=== PATIENT | female | born 1960 | race Caucasian/White ===

== ENCOUNTER 2017-05-27 19:30 | Emergency (ER) | payer SELFPAY ==
[2017-05-27 19:33] VITALS: BP 129/62; PULSE 86; RESP 16; TEMP 97.9; O2SAT 97
--- NOTE | 2017-05-27 19:57 | PD ---
HPI Chief Complaint: Flank/Kidney Pain Time Seen by Provider: 19:47 Travel History International Travel<30 days: No Contact w/Intl Traveler<30days: No Traveled to known affect area: No History of Present Illness HPI This is a 56-year-old female who presents to the emergency department with right sided flank pain that started at 4 AM this morning and has progressed throughout the day [id number], radiating down into her right lower abdomen. She has had some nausea but no vomiting. She denies any fevers or chills. She says this feels similar to when she's had kidney stones in the past. The last time she had a kidney stone it was small and didn't require any intervention. PFSH Past Medical History Kidney Stones: Yes Tetanus Vaccination: Unknown Influenza Vaccination: Yes ?: Not LMP: 04/23/17 : 0 Ovarian Cysts: Yes Past Surgical History Gynecologic Surgery: Yes (RIGHT BREAST "MARKER" PLACED) Social History Alcohol Use: Yes ("WEEKENDS") Tobacco Use: Yes (1/2 PACK PER WEEK) Substance Use: No Allergies-Medications (Allergen,Severity, Reaction): Coded Allergies: No Known Allergies (Unverified , 05/27/17) Reported Meds & Prescriptions Reported Meds & Active Scripts Active No Active Prescriptions or Reported Medications Review of Systems Except as stated in HPI: all other systems reviewed are Neg Physical Exam Narrative GENERAL:Well appearing, no acute distress SKIN: Focused skin assessment warm and dry. HEAD: Atraumatic. Normocephalic. EYES: Pupils equal and round. No injection or drainage. ENT: Moist mucous membranes NECK: Trachea midline. CARDIOVASCULAR: Regular rate and rhythm. No murmur appreciated. RESPIRATORY: Clear to auscultation. Breath sounds equal bilaterally. GASTROINTESTINAL: Abdomen soft, mildly tender to palpation in the right lower quadrant with no rebound or guarding. : Right CVA tenderness MUSCULOSKELETAL: No obvious deformities. NEUROLOGICAL: Awake and alert. No obvious cranial nerve deficits. Moving all extremities. PSYCHIATRIC: Appropriate mood and affect; insight and judgment normal. Data Data Last Documented VS Vital Signs Date Time Temp Pulse Resp B/P Pulse Ox O2 Delivery O2 Flow Rate FiO2 05/27/17 21:32 83 113/74 97 Room Air 05/27/17 19:33 97.9 16 Orders Complete Blood Count With Diff (05/27/17 19:54) Comprehensive Metabolic Panel (05/27/17 19:54) Urinalysis - C+S If Indicated (05/27/17 19:54) ^ Insert Iv (05/27/17 19:54) Sodium Chlor 0.9% 1000 Ml Inj (Ns 1000 M (05/27/17 20:00) Ketorolac Inj (Toradol Inj) (05/27/17 20:00) Ondansetron Inj (Zofran Inj) (05/27/17 20:00) Ed Poc Ultrasound (05/27/17 ) Morphine Inj (Morphine Inj) (05/27/17 21:00) Morphine Inj (Morphine Inj) (05/27/17 21:00) Ondansetron Inj (Zofran Inj) (05/27/17 21:15) Labs Laboratory Tests Test 05/27/17 05/27/17 19:55 20:00 White Blood Count 9.5 TH/MM3 Red Blood Count 4.51 MIL/MM3 Hemoglobin 14.2 GM/DL Hematocrit 41.6 % Mean Corpuscular Volume 92.2 FL Mean Corpuscular Hemoglobin 31.5 PG Mean Corpuscular Hemoglobin 34.2 % Concent Red Cell Distribution Width 11.9 % Platelet Count 208 TH/MM3 Mean Platelet Volume 9.3 FL Neutrophils (%) (Auto) 75.5 % Lymphocytes (%) (Auto) 13.6 % Monocytes (%) (Auto) 6.3 % Eosinophils (%) (Auto) 1.7 % Basophils (%) (Auto) 2.9 % Neutrophils # (Auto) 7.1 TH/MM3 Lymphocytes # (Auto) 1.3 TH/MM3 Monocytes # (Auto) 0.6 TH/MM3 Eosinophils # (Auto) 0.2 TH/MM3 Basophils # (Auto) 0.3 TH/MM3 CBC Comment DIFF FINAL Differential Comment Sodium Level 141 MEQ/L Potassium Level 3.7 MEQ/L Chloride Level 108 MEQ/L Carbon Dioxide Level 26.5 MEQ/L Anion Gap 7 MEQ/L Blood Urea Nitrogen 18 MG/DL Creatinine 1.10 MG/DL Estimat Glomerular Filtration 52 ML/MIN Rate Random Glucose 81 MG/DL Calcium Level 8.3 MG/DL Total Bilirubin 0.6 MG/DL Aspartate Amino Transf 16 U/L (AST/SGOT) Alanine Aminotransferase 24 U/L (ALT/SGPT) Alkaline Phosphatase 74 U/L Total Protein 6.6 GM/DL Albumin 3.7 GM/DL Urine Color YELLOW Urine Turbidity CLOUDY Urine pH 6.0 Urine Specific [place] 1.016 Urine Protein NEG mg/dL Urine Glucose (UA) NEG mg/dL Urine Ketones NEG mg/dL Urine Occult Blood MOD Urine Nitrite NEG Urine Bilirubin NEG Urine Leukocyte Esterase NEG Urine RBC 4-9 /hpf Urine WBC 0-2 /hpf Urine Squamous Epithelial 0-5 /hpf Cells Urine Bacteria NONE /hpf Microscopic Urinalysis Comment CULT NOT INDICATED MDM Medical Decision Making Medical Screen Exam Complete: Yes Emergency Medical Condition: Yes Interpretation(s) Afebrile, no tachycardia, normotensive No leukocytosis Electrolytes are reassuring Urinalysis: Some blood Differential Diagnosis Nephrolithiasis, obstructive uropathy, pyelonephritis, urinary tract infection Narrative Course This is a 56-year-old female who presents to the emergency department with right sided flank pain that radiates into her right lower abdomen. She's had kidney stones in the past and this feels similar. She's had no fever. She looks very well on exam and is pretty comfortable. Labs were obtained which were reassuring with no leukocytosis. She has some blood in her urine but no evidence of urinary tract infection. We discussed the risks versus benefits of CT imaging. Clinically I think she probably has a small kidney stone. I performed a [id number] ultrasound which shows maybe some mild hydronephrosis of the right kidney but nothing severe. She thinks her last stone was 3 mm and passed on its own. If she feels worse she can come Back and we can do CT imaging at that time. She seems amenable to that plan. She was given pain medication and antiemetics in the emergency department. She'll be discharged with a strainer and a referral to urology. Diagnosis Primary Impression: Nephrolithiasis Patient Instructions: General Instructions Additional Instructions: If you develop severe pain, inability to eat or drink, or fever return to the emergency department. Use a strainer to try to catch your stone. Take percocet as needed for pain, and continue taking zofran as needed for nausea. Follow up with urology as soon as possible. Med/Other Pt SpecificInfo: Prescription(s) given Scripts Ondansetron Odt (Zofran Odt)4 Mg Tab4 Mg SL Q6HR PRN (Nausea/Vomiting) #15 TAB Prov:Veronica Padilla MD 05/27/17 Hydrocodone-Acetaminophen (Lortab)5-325 Mg Tab1 Tab PO Q6H PRN (PAIN) #10 TAB Ref 0 Prov:Veronica Padilla MD 05/27/17 Disposition: 01 DISCHARGE HOME Condition: Stable Veronica Padilla MD May 27, 2017 19:56
[2017-05-27] MEDS ORDERED: SODIUM CHLOR 0.9% 1000 ML INJ 1,000 ML IV ONE (20:00)
[2017-05-27] MEDS ORDERED: ONDANSETRON HCL 4 MG/2 ML VIAL IV PUSH ONE (20:00)
[2017-05-27] MEDS ORDERED: KETOROLAC TROMETHAMINE 30 MG/ML (IVP) VIAL IV PUSH ONE (20:00)
[2017-05-27 20:14] LABS: AUTOMATED NEUTROPHIL # 7.1 TH/MM3 (1.8-7.7); BASOPHIL # 0.3 TH/MM3 (0-0.2); BASOPHIL % 2.9 % (0.0-2.0); EOSINOPHIL # 0.2 TH/MM3 (0-0.4); EOSINOPHIL % 1.7 % (0.0-4.0); HEMATOCRIT 41.6 % (35.0-46.0); LYMPH % 13.6 % (9.0-44.0); LYMPHOCYTE # 1.3 TH/MM3 (1.0-4.8); MEAN CELL VOLUME 92.2 FL (80.0-100.0); MEAN CORPUSCULAR HEMOGLOBIN 31.5 PG (27.0-34.0); MEAN CORPUSCULAR HGB CONC 34.2 % (32.0-36.0); MONO % 6.3 % (0.0-8.0); NEUT % 75.5 % (16.0-70.0); PLATELET COUNT 208 TH/MM3 (150-450); RED BLOOD COUNT 4.51 MIL/MM3 (4.00-5.30); RED CELL DISTRIBUTION WIDTH 11.9 % (11.6-17.2); WHITE BLOOD COUNT 9.5 TH/MM3 (4.0-11.0)
[2017-05-27 20:15] LABS: HEMO FLAGS DIFF FINAL
[2017-05-27 20:15] LABS: GLUCOSE,URINE NEG (NEG); KETONE, URINE NEG (NEG); NITRITE,URINE NEG (NEG)
[2017-05-27 20:25] LABS: BLOOD, URINE MOD (NEG)
[2017-05-27 20:28] LABS: URINE COLOR YELLOW (YELLW/STRAW)
[2017-05-27 20:29] LABS: COMMENT (UR) CULT NOT INDICATED; CULTURE IF INDICATED CULT NOT INDICATED; SQUAMOUS EPITHELIAL CELL URINE 0-5 /hpf (0-5); WBC, URINE 0-2 /hpf (0-5)
[2017-05-27 20:32] LABS: CHLORIDE 108 MEQ/L (98-107); POTASSIUM 3.7 MEQ/L (3.5-5.1); SODIUM (NA) 141 MEQ/L (136-145)
[2017-05-27 20:35] LABS: ANION GAP 7 MEQ/L (5-15); BICARBONATE 26.5 MEQ/L (21.0-32.0)
[2017-05-27 20:36] LABS: BLOOD UREA NITROGEN 18 MG/DL (7-18)
[2017-05-27 20:39] LABS: ALT (GPT) 24 U/L (10-53); AST (GOT) 16 U/L (15-37); GLOMERULAR FILTRATION RATE 52 ML/MIN (>89)
[2017-05-27 20:40] LABS: TOTAL BILIRUBIN ADULT 0.6 MG/DL (0.2-1.0)
[2017-05-27 20:42] LABS: ALKALINE PHOSPHATASE 74 U/L (45-117)
[2017-05-27] MEDS ORDERED: MORPHINE SULFATE 8 MG/ML INJ IV PUSH ONE (21:00)
[2017-05-27] MEDS ORDERED: MORPHINE SULFATE 4 MG/ML INJ IV PUSH ONE (21:00)
[2017-05-27] MEDS ORDERED: ONDANSETRON HCL 4 MG/2 ML VIAL IV ONE (21:15)
[2017-05-27 21:32] VITALS: BP 113/74; PULSE 83; O2SAT 97
[2017-05-27] MEDS ORDERED: ZOFR4TAB3 SL (21:37)
[2017-05-27] MEDS ORDERED: HYDR-3533 PO (21:37)
== END 2017-05-27 21:52 | disposition home or self-care (01) ==
LOC: PHED 19:30
DX: N20.0 Calculus of kidney (principal); R11.0 Nausea; Z72.0 Tobacco use; Z87.442 Personal history of urinary calculi
CPT/HCPCS: 80053; 81001; 85025; 96361; 96374; 96375; 99285; J1885; J2270; J2405; J7030